=== PATIENT | female | born 1970 | race African-American/Black ===

== ENCOUNTER 2021-04-01 20:56 | Inpatient (IN) ==
[2021-04-01] MEDS ORDERED: SODIUM CHLORIDE 0.9% 1,000 ML IV STA (22:22)
[2021-04-01 23:43] LABS: Hematocrit 38.7 VOL% (35.7-47.0); Hemoglobin 11.7 GM/DL (12.0-16.0); Immature Granulocytes % 0.5 %; Immature Granulocytes Absolute 0.02 #; Lymphocytes # 1.1 10*3/uL (1.4-4.0); Lymphocytes % 25.4 % (21.3-54.2); Mean Corpuscular HGB Conc 30.2 GM/DL (32-36); Mean Platelet Volume 10.3 FL (9.6-12.0); Monocytes % 5.8 % (1.7-12.7); Neutrophils % 68.3 % (38.7-73.9); Platelet Count 165 T/CUMM (130-400); Red Blood Count 4.84 MC/CUMM (3.8-5.5); Red Cell Distribution Width 16.2 % (9.3-17.3); White Blood Count 4.3 T/CUMM (4-12)
[2021-04-02 00:06] LABS: Albumin 3.1 G/DL (3.4-5.0); Bilirubin,Total 0.5 MG/DL (0.20-1.00); Calcium 9.4 MG/DL (8.5-10.1); Ferritin 101.4 ng/ml (8-252); Osmolality,Calculated 270.2 MOS/KG (273-304); Potassium 4.3 MMOL/L (3.5-5.1); Total Protein 7.9 G/DL (6.4-8.2)
[2021-04-02] MEDS ORDERED: DEXAMETHASONE 4 MG/1 ML VIAL IV STA (00:25)
[2021-04-02] MEDS ORDERED: cefTRIAXone 1,000 MG in SODIUM CHLORIDE 0.9% 100 ML IV STA (00:25)
[2021-04-02] MEDS: ZALEPLON 5 MG CAPSULE PO PRN (00:54)
[2021-04-02] MEDS ORDERED: DEXTROSE 50% 25 GM/50 ML VIAL IV PRN (01:19)
[2021-04-02] MEDS ORDERED: NICOTINE 21 MG/24 HR PATCH TRANSDERM PRN (01:19)
[2021-04-02] MEDS ORDERED: ACETAMINOPHEN 325 MG TABLET PO PRN (01:19)
[2021-04-02] MEDS ORDERED: GLUCAGON 1 MG VIAL IM PRN (01:19)
[2021-04-02] MEDS ORDERED: MORPHINE 2 MG/1 ML SYRINGE IV PRN (01:19)
[2021-04-02] MEDS ORDERED: diphenhydrAMINE CAP 25 MG CAPSULE PO PRN (01:19)
[2021-04-02] MEDS ORDERED: SODIUM CHLORIDE 0.9% 1,000 ML IV STA (01:21)
[2021-04-02] MEDS: SODIUM CHLORIDE 0.9% 1,000 ML IV SCH ×2 (02:57→15:43)
[2021-04-02] MEDS: AZITHROMYCIN INJ 500 MG in SODIUM CHLORIDE 0.9% 250 ML IV SCH (03:08)
[2021-04-02 05:08] LABS: Bacteria,Urine Occasional /HPF (Few); Bilirubin,Urine Negative (Negative); Blood, Urine Negative (Negative); Glucose,Urine (UA) Negative (Negative); Ketones,Urine 5 mg/dL (Negative); Mucus,Urine Occasional /LPF (Occasional); Nitrite,Urine Negative (Negative); Protein,Urine 30 MG/DL; RBC,Urine 1 /HPF (0-4); Squamous Epithelial Cell,Urine Occasional /HPF (0-10); Urine Appearance CLEAR (Clear); Urine Color Yellow (Yellow); Urine Specific Gravity 1.021 (1.001-1.035); Urine Urobilinogen < 2.0 EU/DL (0.2-1.0)
[2021-04-02 07:29] LABS: Hematocrit 35.1 VOL% (35.7-47.0); Hemoglobin 10.8 GM/DL (12.0-16.0); Immature Granulocytes % 0.3 %; Immature Granulocytes Absolute 0.01 #; Lymphocytes # 0.5 10*3/uL (1.4-4.0); Lymphocytes % 15.6 % (21.3-54.2); Mean Corpuscular HGB Conc 30.8 GM/DL (32-36); Mean Platelet Volume 10.2 FL (9.6-12.0); Monocytes % 2.9 % (1.7-12.7); Neutrophils % 81.2 % (38.7-73.9); Platelet Count 154 T/CUMM (130-400); Red Blood Count 4.39 MC/CUMM (3.8-5.5); Red Cell Distribution Width 16.2 % (9.3-17.3); White Blood Count 3.5 T/CUMM (4-12)
[2021-04-02 07:55] LABS: Alanine Aminotransferase 15 U/L (13-56); Albumin 2.7 G/DL (3.4-5.0); Alkaline Phosphatase 40 U/L (45-117); Aspartate Amino Transferase 32 U/L (0-37); Bilirubin,Total < 0.39 MG/DL (0.20-1.00); Blood Urea Nitrogen 16 MG/DL (7-18); Calcium 8.7 MG/DL (8.5-10.1); Carbon Dioxide 26 MMOL/L (21-32); Estimated Glom Filtration Rate 96 ML/MIN; Glucose 134 MG/DL (74-106); Potassium 4.3 MMOL/L (3.5-5.1); Sodium 136 MMOL/L (136-145); Total Protein 7.4 G/DL (6.4-8.2)
[2021-04-02] MEDS: DEXAMETHASONE 4 MG/1 ML VIAL IV SCH (08:32)
[2021-04-02] MEDS: ENOXAPARIN 40 MG/0.4 ML SYRINGE SUBCUT SCH (08:32)
[2021-04-02 08:33] LABS: Eosinophils 1 % (0-10); Hypochromasia 3+; Lymphocytes 9 % (20-55); Microcytosis 1+; Segmented Neutrophils 86 % (50-85); Total Cells Counted 100
[2021-04-02] MEDS: BISACODYL 5 MG TABLET PO SCH (08:33)
[2021-04-02] MEDS: PANTOPRAZOLE 40 MG TABLET PO SCH (08:33)
[2021-04-02] MEDS: ZINC GLUCONATE 50 MG TABLET PO SCH (08:33)
[2021-04-02] MEDS: ASCORBIC ACID 500 MG TABLET PO SCH ×2 (08:33→20:36)
[2021-04-02 08:34] LABS: Ovalocytes Slight; Platelet Estimate Adequate; Polychromasia Slight
[2021-04-02] MEDS: CHOLECALCIFEROL 1,000 UNIT TABLET PO SCH (08:40)
[2021-04-02] MEDS ORDERED: REMDESIVIR 200 MG in SODIUM CHLORIDE 0.9% 210 ML IV ONE ×2 (09:00→12:30)
[2021-04-02] MEDS ORDERED: SODIUM CHLORIDE 0.9% 1,000 ML IV PRN (14:52)
[2021-04-02] MEDS: guaiFENesin/DM ER 600-30 MG TABLET PO PRN (20:56)
[2021-04-02] MEDS ORDERED: cefTRIAXone 1,000 MG in SODIUM CHLORIDE 0.9% 100 ML IV SCH (21:00)
[2021-04-03] MEDS ORDERED: ALBUTEROL INHALER 18 GM INH PRN (01:11)
[2021-04-03] MEDS: ALBUTEROL INHALER 18 GM INH SCH ×4 (01:20→19:30)
[2021-04-03] MEDS ORDERED: ALBUTEROL/IPRATROPIUM 3 ML NEB RESP TX SCH (01:30)
[2021-04-03] MEDS: AZITHROMYCIN INJ 500 MG in SODIUM CHLORIDE 0.9% 250 ML IV SCH (02:51)
[2021-04-03] MEDS: SODIUM CHLORIDE 0.9% 1,000 ML IV SCH ×5 (04:37→20:07)
[2021-04-03 05:32] LABS: Hematocrit 33.7 VOL% (35.7-47.0); Hemoglobin 10.2 GM/DL (12.0-16.0); Immature Granulocytes % 0.4 %; Immature Granulocytes Absolute 0.02 #; Lymphocytes # 0.9 10*3/uL (1.4-4.0); Lymphocytes % 17.3 % (21.3-54.2); Mean Corpuscular HGB Conc 30.3 GM/DL (32-36); Mean Corpuscular Volume 79.9 FL (87-102); Mean Platelet Volume 10.1 FL (9.6-12.0); Neutrophils % 77.3 % (38.7-73.9); Platelet Count 168 T/CUMM (130-400); Red Blood Count 4.22 MC/CUMM (3.8-5.5); Red Cell Distribution Width 15.9 % (9.3-17.3); White Blood Count 5.2 T/CUMM (4-12)
[2021-04-03 05:47] LABS: Calcium 8.6 MG/DL (8.5-10.1); Ferritin 135.6 ng/ml (8-252); Osmolality,Calculated 277.5 MOS/KG (273-304); Potassium 4.1 MMOL/L (3.5-5.1)
[2021-04-03] MEDS: ENOXAPARIN 40 MG/0.4 ML SYRINGE SUBCUT SCH (08:10)
[2021-04-03] MEDS: CHOLECALCIFEROL 1,000 UNIT TABLET PO SCH (08:11)
[2021-04-03] MEDS: PANTOPRAZOLE 40 MG TABLET PO SCH (08:11)
[2021-04-03] MEDS: ZINC GLUCONATE 50 MG TABLET PO SCH (08:11)
[2021-04-03] MEDS: ASCORBIC ACID 500 MG TABLET PO SCH ×2 (08:11→20:57)
[2021-04-03] MEDS: BISACODYL 5 MG TABLET PO SCH (08:11)
[2021-04-03] MEDS: DEXAMETHASONE 4 MG/1 ML VIAL IV SCH (08:12)
[2021-04-03] MEDS: REMDESIVIR 100 MG in SODIUM CHLORIDE 0.9% 100 ML IV SCH (08:24)
[2021-04-03] MEDS: INSULIN LISPRO 100 UNIT/ML SUBCUT SCH (20:06)
[2021-04-03] MEDS: guaiFENesin/DM ER 600-30 MG TABLET PO PRN (20:57)
[2021-04-03] MEDS: ZALEPLON 5 MG CAPSULE PO PRN ×2 (20:57→21:55)
[2021-04-03 21:28] VITALS: BP 132/101
[2021-04-04] MEDS: ALBUTEROL INHALER 18 GM INH SCH ×4 (00:36→18:10)
[2021-04-04] MEDS: SODIUM CHLORIDE 0.9% 1,000 ML IV SCH ×3 (04:34→22:45)
[2021-04-04 06:33] LABS: Basophils % 0.2 % (0.0-0.8); Hematocrit 34.8 VOL% (35.7-47.0); Hemoglobin 10.4 GM/DL (12.0-16.0); Immature Granulocytes % 1.3 %; Immature Granulocytes Absolute 0.07 #; Lymphocytes # 1.4 10*3/uL (1.4-4.0); Lymphocytes % 26.1 % (21.3-54.2); Mean Corpuscular HGB Conc 29.9 GM/DL (32-36); Mean Corpuscular Volume 81.1 FL (87-102); Mean Platelet Volume 10.3 FL (9.6-12.0); Monocytes % 5.3 % (1.7-12.7); Neutrophils % 67.1 % (38.7-73.9); Platelet Count 184 T/CUMM (130-400); Red Blood Count 4.29 MC/CUMM (3.8-5.5); Red Cell Distribution Width 15.9 % (9.3-17.3); White Blood Count 5.5 T/CUMM (4-12)
[2021-04-04 07:22] LABS: Calcium 8.6 MG/DL (8.5-10.1); Ferritin 117.4 ng/ml (8-252); Osmolality,Calculated 274.7 MOS/KG (273-304); Potassium 4.2 MMOL/L (3.5-5.1)
[2021-04-04] MEDS: INSULIN LISPRO 100 UNIT/ML SUBCUT SCH ×4 (07:25→21:04)
[2021-04-04] MEDS: DEXAMETHASONE 4 MG/1 ML VIAL IV SCH (08:00)
[2021-04-04] MEDS: ZINC GLUCONATE 50 MG TABLET PO SCH (08:00)
[2021-04-04] MEDS: CHOLECALCIFEROL 1,000 UNIT TABLET PO SCH (08:00)
[2021-04-04] MEDS: ENOXAPARIN 40 MG/0.4 ML SYRINGE SUBCUT SCH (08:00)
[2021-04-04] MEDS: AZITHROMYCIN 250 MG TABLET PO SCH (08:01)
[2021-04-04] MEDS: ASCORBIC ACID 500 MG TABLET PO SCH ×2 (08:01→21:04)
[2021-04-04] MEDS: PANTOPRAZOLE 40 MG TABLET PO SCH (08:01)
[2021-04-04] MEDS: BISACODYL 5 MG TABLET PO SCH (08:01)
[2021-04-04] MEDS: hydrALAZINE 20 MG/1 ML VIAL IV PRN ×2 (08:03→15:42)
[2021-04-04] MEDS: REMDESIVIR 100 MG in SODIUM CHLORIDE 0.9% 100 ML IV SCH (09:19)
[2021-04-04] MEDS: ZALEPLON 5 MG CAPSULE PO PRN (21:05)
[2021-04-04] MEDS: guaiFENesin/DM ER 600-30 MG TABLET PO PRN (21:05)
[2021-04-04] MEDS ORDERED: PROMETHAZINE INJ 25 MG in SODIUM CHLORIDE 0.9% 50 ML IV PRN (22:28)
[2021-04-04] MEDS ORDERED: ONDANSETRON 4 MG/2 ML VIAL IV PRN (22:28)
[2021-04-04] MEDS ORDERED: ONDANSETRON 4 MG/2 ML VIAL ONE (22:30)
[2021-04-05] MEDS: ALBUTEROL INHALER 18 GM INH SCH ×4 (00:20→18:01)
[2021-04-05 06:09] LABS: Hematocrit 34.4 VOL% (35.7-47.0); Hemoglobin 10.6 GM/DL (12.0-16.0); Immature Granulocytes % 1.3 %; Immature Granulocytes Absolute 0.07 #; Lymphocytes # 1.3 10*3/uL (1.4-4.0); Lymphocytes % 23.3 % (21.3-54.2); Mean Corpuscular HGB Conc 30.8 GM/DL (32-36); Mean Corpuscular Volume 79.6 FL (87-102); Mean Platelet Volume 9.9 FL (9.6-12.0); Monocytes % 7.6 % (1.7-12.7); Neutrophils % 67.8 % (38.7-73.9); Platelet Count 200 T/CUMM (130-400); Red Blood Count 4.32 MC/CUMM (3.8-5.5); Red Cell Distribution Width 15.9 % (9.3-17.3); White Blood Count 5.5 T/CUMM (4-12)
[2021-04-05 06:38] LABS: Calcium 8.8 MG/DL (8.5-10.1); Ferritin 93.4 ng/ml (8-252); Osmolality,Calculated 280.3 MOS/KG (273-304); Potassium 4.2 MMOL/L (3.5-5.1)
[2021-04-05] MEDS: INSULIN LISPRO 100 UNIT/ML SUBCUT SCH ×4 (08:15→21:24)
[2021-04-05] MEDS: ENOXAPARIN 40 MG/0.4 ML SYRINGE SUBCUT SCH (08:30)
[2021-04-05] MEDS: BISACODYL 5 MG TABLET PO SCH (08:30)
[2021-04-05] MEDS: DEXAMETHASONE 4 MG/1 ML VIAL IV SCH (08:30)
[2021-04-05] MEDS: ASCORBIC ACID 500 MG TABLET PO SCH ×2 (08:30→21:24)
[2021-04-05] MEDS: AZITHROMYCIN 250 MG TABLET PO SCH (08:30)
[2021-04-05] MEDS: CHOLECALCIFEROL 1,000 UNIT TABLET PO SCH (08:30)
[2021-04-05] MEDS: PANTOPRAZOLE 40 MG TABLET PO SCH (08:30)
[2021-04-05] MEDS: ZINC GLUCONATE 50 MG TABLET PO SCH (08:30)
[2021-04-05] MEDS: REMDESIVIR 100 MG in SODIUM CHLORIDE 0.9% 100 ML IV SCH (09:50)
[2021-04-05] MEDS: SODIUM CHLORIDE 0.9% 1,000 ML IV SCH ×2 (10:15→17:33)
[2021-04-05] MEDS: guaiFENesin/DM ER 600-30 MG TABLET PO PRN (21:24)
[2021-04-05] MEDS: ZALEPLON 5 MG CAPSULE PO PRN (21:24)
[2021-04-06] MEDS: ALBUTEROL INHALER 18 GM INH SCH ×4 (00:44→20:16)
[2021-04-06 05:59] LABS: Hematocrit 35.6 VOL% (35.7-47.0); Hemoglobin 10.6 GM/DL (12.0-16.0); Immature Granulocytes % 1.1 %; Immature Granulocytes Absolute 0.06 #; Lymphocytes # 1.2 10*3/uL (1.4-4.0); Mean Corpuscular HGB Conc 29.8 GM/DL (32-36); Mean Corpuscular Volume 80.2 FL (87-102); Mean Platelet Volume 9.8 FL (9.6-12.0); Monocytes % 4.8 % (1.7-12.7); Neutrophils % 71.1 % (38.7-73.9); Platelet Count 233 T/CUMM (130-400); Red Blood Count 4.44 MC/CUMM (3.8-5.5); Red Cell Distribution Width 15.9 % (9.3-17.3); White Blood Count 5.4 T/CUMM (4-12)
[2021-04-06 06:18] LABS: Calcium 9.2 MG/DL (8.5-10.1); Osmolality,Calculated 277.5 MOS/KG (273-304); Potassium 3.8 MMOL/L (3.5-5.1)
[2021-04-06 06:20] LABS: Ferritin 73.5 ng/ml (8-252)
[2021-04-06] MEDS: SODIUM CHLORIDE 0.9% 1,000 ML IV SCH ×3 (07:00→16:40)
[2021-04-06] MEDS: INSULIN LISPRO 100 UNIT/ML SUBCUT SCH ×4 (07:45→20:17)
[2021-04-06] MEDS: DEXAMETHASONE 4 MG/1 ML VIAL IV SCH (08:00)
[2021-04-06] MEDS: ENOXAPARIN 40 MG/0.4 ML SYRINGE SUBCUT SCH (08:00)
[2021-04-06] MEDS: PANTOPRAZOLE 40 MG TABLET PO SCH (08:00)
[2021-04-06] MEDS: ZINC GLUCONATE 50 MG TABLET PO SCH (08:00)
[2021-04-06] MEDS: BISACODYL 5 MG TABLET PO SCH (08:00)
[2021-04-06] MEDS: ASCORBIC ACID 500 MG TABLET PO SCH ×2 (08:00→20:17)
[2021-04-06] MEDS: AZITHROMYCIN 250 MG TABLET PO SCH (08:00)
[2021-04-06] MEDS: CHOLECALCIFEROL 1,000 UNIT TABLET PO SCH (08:00)
[2021-04-06] MEDS: REMDESIVIR 100 MG in SODIUM CHLORIDE 0.9% 100 ML IV SCH (09:45)
[2021-04-07] MEDS: ALBUTEROL INHALER 18 GM INH SCH ×3 (02:01→14:05)
[2021-04-07 06:46] LABS: Eosinophils % 0.5 % (0.00-10.9); Hematocrit 33.6 VOL% (35.7-47.0); Hemoglobin 10.2 GM/DL (12.0-16.0); Immature Granulocytes % 1.3 %; Immature Granulocytes Absolute 0.08 #; Lymphocytes # 1.1 10*3/uL (1.4-4.0); Lymphocytes % 18.2 % (21.3-54.2); Mean Corpuscular HGB Conc 30.4 GM/DL (32-36); Mean Corpuscular Volume 80.2 FL (87-102); Mean Platelet Volume 9.7 FL (9.6-12.0); Monocytes % 5.7 % (1.7-12.7); Neutrophils % 74.3 % (38.7-73.9); Platelet Count 241 T/CUMM (130-400); Red Blood Count 4.19 MC/CUMM (3.8-5.5); Red Cell Distribution Width 15.9 % (9.3-17.3); White Blood Count 6.1 T/CUMM (4-12)
[2021-04-07 07:07] LABS: Calcium 8.4 MG/DL (8.5-10.1); Osmolality,Calculated 273.7 MOS/KG (273-304); Potassium 3.8 MMOL/L (3.5-5.1)
[2021-04-07] MEDS: INSULIN LISPRO 100 UNIT/ML SUBCUT SCH ×2 (07:13→11:52)
[2021-04-07] MEDS: ENOXAPARIN 40 MG/0.4 ML SYRINGE SUBCUT SCH (08:27)
[2021-04-07] MEDS: BISACODYL 5 MG TABLET PO SCH (08:28)
[2021-04-07] MEDS: CHOLECALCIFEROL 1,000 UNIT TABLET PO SCH (08:28)
[2021-04-07] MEDS: ASCORBIC ACID 500 MG TABLET PO SCH (08:28)
[2021-04-07] MEDS: PANTOPRAZOLE 40 MG TABLET PO SCH (08:28)
[2021-04-07] MEDS: AZITHROMYCIN 250 MG TABLET PO SCH (08:28)
[2021-04-07] MEDS: DEXAMETHASONE 4 MG/1 ML VIAL IV SCH (08:28)
[2021-04-07] MEDS: ZINC GLUCONATE 50 MG TABLET PO SCH (08:29)
[2021-04-07] MEDS: SODIUM CHLORIDE 0.9% 1,000 ML IV SCH (09:29)
== END 2021-04-07 15:20 | disposition home or self-care (01) | DRG 177 ==
LOC: N.ED 20:56 → SUATTDRO 04-02 01:19 → N.EDINP 04-02 01:19 → N.CC 04-02 02:47
PROVIDERS: ADMIT Emergency Medicine; ATTEND Internal Medicine